=== PATIENT | female | born 1995 | race Asian ===

== ENCOUNTER 2019-10-04 22:38 | Inpatient (IN) | payer OTHER ==
[~2019-10-04] VITALS: Ht 157.5 cm; Wt 68.0 kg
[2019-10-04] MEDS ORDERED: PRENATAL TABLE1 EAC1 PO (22:46)
[2019-10-04] MEDS ORDERED: FOLIC ACID20 MG PO (22:47)
== END 2019-10-06 09:07 | disposition home or self-care (01) | DRG 833 ==
LOC: OBS/DEL 22:38 → LDR 10-05 14:16 → OBS/DEL 10-05 14:16 → LDR 10-06 09:07
PROVIDERS: ADMIT Obstetrics & Gynecology; ATTEND Obstetrics & Gynecology
PROC: 4A0HXFZ Measurement of Products of Conception, Cardiac Rhythm, External Approach (ICD-10-PCS; principal; 2019-10-05)
DX: O60.03 Preterm labor without delivery, third trimester (principal)

== ENCOUNTER 2019-11-08 09:32 | Outpatient (CLI) | payer OTHER ==
[~2019-11-08 09:32] MED LIST: FOLIC ACID20 MG PO; PRENATAL TABLE1 EAC1 PO
== END 2019-11-08 10:17 | disposition home or self-care (01) ==
LOC: NST 09:32
PROVIDERS: ATTEND Obstetrics & Gynecology
DX: Z34.83 Encounter for supervision of other normal pregnancy, third trimester (principal)

== ENCOUNTER 2019-11-19 08:21 | Outpatient (CLI) | payer OTHER ==
[2019-11-20] MEDS ORDERED: PRENATAL TABLE1 EAC1 PO (06:49)
== END 2019-11-19 10:37 | disposition home or self-care (01) ==
LOC: NST 08:21
PROVIDERS: ATTEND Obstetrics & Gynecology
DX: Z34.83 Encounter for supervision of other normal pregnancy, third trimester (principal)

== ENCOUNTER 2019-11-20 06:29 | Inpatient (IN) | payer OTHER ==
[~2019-11-20] VITALS: Ht 154.9 cm; Wt 68.5 kg
[2019-11-20] MEDS ORDERED: PRENATAL TABLE1 EAC1 PO (06:49)
== END 2019-11-22 13:28 | disposition home or self-care (01) | DRG 807 ==
LOC: LDR 06:29 → OB/GYN 06:29
PROVIDERS: ADMIT Obstetrics & Gynecology; ATTEND Obstetrics & Gynecology
PROC: 10E0XZZ Delivery of Products of Conception, External Approach (ICD-10-PCS; principal; 2019-11-20)
PROC: 3E033VJ Introduction of Other Hormone into Peripheral Vein, Percutaneous Approach (ICD-10-PCS; 2019-11-20)
PROC: 0HQ9XZZ Repair Perineum Skin, External Approach (ICD-10-PCS; 2019-11-20)
DX: O70.0 First degree perineal laceration during delivery (principal); Z37.0 Single live birth; Z3A.38 38 weeks gestation of pregnancy; Z20.828 Contact with and (suspected) exposure to other viral communicable diseases

== ENCOUNTER 2021-03-11 18:43 | Outpatient (CLI) | payer OTHER | END 2021-03-11 19:35 | disposition home or self-care (01) | LOC: NST 18:43 | PROVIDERS: ATTEND Obstetrics & Gynecology Maternal & Fetal Medicine | DX: Z34.83 Encounter for supervision of other normal pregnancy, third trimester (principal) ==

== ENCOUNTER 2021-04-10 18:49 | Emergency (ER) | payer OTHER ==
[~2021-04-10] VITALS: Ht 152.4 cm; Wt 60.8 kg
[2021-04-10] MEDS ORDERED: DICLOXACILLIN500 MG PO (22:20)
== END 2021-04-10 22:29 | disposition home or self-care (01) ==
LOC: ER 18:49
DX: N61.0 Mastitis without abscess (principal)